=== PATIENT | male | born 1975 | race Caucasian/White ===

== ENCOUNTER 2017-07-23 10:42 | Emergency (ER) | payer MEDICARE, SELFPAY ==
[2017-07-23 10:42] VITALS: BP 146/95; PULSE 91; RESP 24; TEMP 36.7; O2SAT 96; BMI 38.2
--- NOTE | 2017-07-23 11:18 | ED.VISSUMM ---
- ER Visit Summary Date of Service: 07/23/17 Chief Complaint: Right lower back pain radiating down right buttock History of Present Illness: The patient is a 41 M with known sciatica presenting with a flareup for the past week. Pnjo-snb-ubrccmg medication is not working. Denies new or concerning features. He has been dealing with this for years and has an MRI proving a bulging disc. He was not felt to be a surgical candidate. He did have improvement with physical therapy in the past. He basically gets flareups every few months or so. He denies bowel bladder dysfunction. Denies groin paresthesias denies lower extremity weakness. Physical Examination: While here. Mild paraspinal tenderness in the lumbar region on the right. No midline bony tenderness, erythema, or fluctuance. Normal strength and sensation in both lower extremities. Straight leg raise positive at 30? on the right. Normal and symmetric reflexes. Negative Babinski's. No clonus. Test Results: None performed Emergency Department Course and Treatment: He was given intramuscular Toradol and Norflex with improvement. I wrote him a prescription for Medrol Dosepak, Zanaflex, and naproxen. He will follow-up. No evidence of cauda equina syndrome or paraspinal/epidural abscess at this time. Treatment Plan: Close follow-up Disposition: Home stable condition Impression: initial encounter right lumbar back pain with right sided sciatica This note was generated with [employer] dictation software. It may contain incorrect words, spelling, and punctuation that were not noted in review of the chart prior to signing ED Disposition - Plan for ED Patient: Chief Complaint: Back Instructions: ED Sciatica Prescriptions: MethylPREDNISolone DosePak [Medrol DosePak] 4 mg PO UD #1 box Naproxen [Naprosyn] 500 mg PO BID PRN #20 tablet Tizanidine HCl [Zanaflex] 4 mg PO TID PRN #20 tablet PRN Reason: Pain Referrals: Nadira Soliz MD [Primary Care Provider] -
--- NOTE | 2017-07-23 11:24 | ED.DCSUM_ITS ---
- ER Visit Summary Date of Service: 07/23/17 Chief Complaint: Right lower back pain radiating down right buttock History of Present Illness: The patient is a 41 M with known sciatica presenting with a flareup for the past week. Ravr-ugg-[id number] medication is not working. Denies new or concerning features. He has been dealing with this for years and has an MRI proving a bulging disc. He was not felt to be a surgical candidate. He did have improvement with physical therapy in the past. He basically gets flareups every few months or so. He denies bowel bladder dysfunction. Denies groin paresthesias denies lower extremity weakness. Physical Examination: While here. Mild paraspinal tenderness in the lumbar region on the right. No midline bony tenderness, erythema, or fluctuance. Normal strength and sensation in both lower extremities. Straight leg raise positive at 30? on the right. Normal and symmetric reflexes. Negative Babinski 's. No clonus. Test Results: None performed Emergency Department Course and Treatment: He was given intramuscular Toradol and Norflex with improvement. I wrote him a prescription for Medrol Dosepak, Zanaflex, and naproxen. He will follow-up. No evidence of cauda equina syndrome or paraspinal/epidural abscess at this time. Treatment Plan: Close follow-up Disposition: Home stable condition Impression: initial encounter right lumbar back pain with right sided sciatica This note was generated with [employer] dictation software. It may contain incorrect words, spelling, and punctuation that were not noted in review of the chart prior to signing ED Disposition - Plan for ED Patient: Chief Complaint: Back Instructions: ED Sciatica Prescriptions: MethylPREDNISolone DosePak [Medrol DosePak] 4 mg PO UD #1 box Naproxen [Naprosyn] 500 mg PO BID PRN #20 tablet Tizanidine HCl [Zanaflex] 4 mg PO TID PRN #20 tablet PRN Reason: Pain Referrals: Nadira Soliz MD [Primary Care Provider] -
[2017-07-23] MEDS: Ketorolac 60 MG/2 ML Vial IM (11:52)
[2017-07-23] MEDS: Orphenadrine 60 MG/2 ML Ampul IM (11:52)
[2017-07-23 12:22] VITALS: BP 128/79; PULSE 71; RESP 16; O2SAT 98
== END 2017-07-23 12:23 | disposition home or self-care (01) ==
LOC: ED 11:35
PROVIDERS: Emergency Provider Emergency Medicine; Family Provider Family Medicine; PCP Family Medicine
DX: M54.41 Lumbago with sciatica, right side (principal); G89.29 Other chronic pain; Z72.0 Tobacco use
CPT/HCPCS: 96372; 99282